=== PATIENT | male | born 1945 | race Caucasian/White ===

== ENCOUNTER 2017-06-04 05:22 | Inpatient (IN) | payer MEDICARE, OTHER ==
[2017-06-04] VITALS (18 sets, daily range): BP systolic 143–171; BP diastolic 67–92; PULSE 56–68; RESP 13–34; Ht 172.7 cm; Wt 78.0 kg
[~2017-06-04] VITALS: Ht 172.7 cm; Wt 78.0 kg
[2017-06-04] MEDS ORDERED: LOSA1TAB20 PO (06:55)
[2017-06-04] MEDS ORDERED: SIMV40TA7 PO (06:55)
[2017-06-04] MEDS ORDERED: ONDA-43 IV* (06:55)
[2017-06-04] MEDS ORDERED: RES15 PO (06:55)
[2017-06-04] MEDS ORDERED: FINA5TAB4 PO (06:55)
[2017-06-04] MEDS ORDERED: MORP2DIS2 IV (06:55)
[2017-06-04] MEDS ORDERED: ASPI-781 PO (06:55)
[2017-06-04] MEDS ORDERED: MAGN400O4 PO (06:55)
[2017-06-04] MEDS ORDERED: ACET-2047 PO (06:55)
[2017-06-04] MEDS ORDERED: ALPR0.5T10 PO (06:55)
[2017-06-04] MEDS ORDERED: PANT40TA4 PO (06:55)
[2017-06-04] MEDS ORDERED: LIDOCAINE 1% (MDV) 20 ML INJ ONE (08:00)
[2017-06-04] MEDS ORDERED: HEPARIN 1000 UNITS/ML 10 ML INJ ONE (08:00)
[2017-06-04] MEDS ORDERED: IODIXANOL LOCM 100 ML BTL ONE (08:00)
[2017-06-04] MEDS ORDERED: MIDAZOLAM 1 MG/ML 2 ML INJ ONE (08:01)
[2017-06-04] MEDS ORDERED: FENTAnyl 50 MCG/ML VIAL ONE (08:01)
[2017-06-04] MEDS ORDERED: VERAPAMIL 5 MG INJ ONE (08:01)
[2017-06-04] MEDS ORDERED: NITROGLYCERIN (IC) 100 MCG/ML INJ ONE (08:01)
[2017-06-04] MEDS ORDERED: TICAGRELOR 90 MG TABLET ONE (09:33)
[2017-06-04] MEDS ORDERED: ASPIRIN 325 MG TAB ONE (09:33)
[2017-06-04] MEDS ORDERED: SOD CHLORIDE 0.9% 1,000 ML IV SCH (09:36)
--- NOTE | 2017-06-04 09:41 | OPR ---
Date/Time of Note Date/Time of Note DATE: 06/04/17 TIME: 09:40 Operative Report Preoperative Diagnosis Nstemi Postoperative Diagnosis Obstructive cad Operation/Procedure Performed 1.C 2.PTCA/stent x 1 to LCX Surgeon: JASON MAN Anesthesia Type: moderate sedation Estimated Blood Loss: minimal Specimen: none Grafts/Implants: none Complications: no JASON MAN Jun 04, 2017 09:41
[2017-06-04] MEDS ORDERED: DIAZEPAM 2 MG TAB PO PRN (10:00)
[2017-06-04] MEDS ORDERED: ACETAMINOPHEN 325 MG TAB PO PRN (10:00)
[2017-06-04] MEDS ORDERED: OXYCODONE/ACETAMINOPHEN (5/325) TAB PO PRN ×2 (10:00)
[2017-06-04] MEDS ORDERED: ONDANSETRON 4 MG INJ IV PRN (10:00)
[2017-06-04] MEDS ORDERED: ZOLPIDEM 5 MG TAB PO PRN (10:00)
[2017-06-04] MEDS ORDERED: AL HYDROX/MG HYDROX/SIMETH 30 ML CUP PO PRN (10:00)
[2017-06-04] MEDS ORDERED: OXYCODONE/ACETAMINOPHEN (5/325) TAB ONE (10:09)
--- NOTE | 2017-06-04 13:04 | CARRPT ---
DATE OF PROCEDURE: 06/04/2017 REASON FOR LEFT HEART CATHETERIZATION: Tmj-[id number] myocardial infarction. TYPE OF PROCEDURE: 1. Left heart catheterization. 2. Coronary angiography. 3. Percutaneous transluminal coronary angioplasty with placement of Synergy drug-eluting stent x1, 3.5 x 24 mm to mid circumflex. 4. 60 minutes of conscious sedation. 5. Measurement of left ventricular end-diastolic pressure. ATTENDING PHYSICIAN: Dr. Alex Lorenzo. REFERRING PHYSICIAN: Dr. Edwards, cardiology service. INDICATION: Tdj-IS-[id number] myocardial infarction. TYPE OF ANESTHESIA: Conscious and local. BRIEF HISTORY AND HOSPITAL COURSE: Mr. Isaac is a 72-year-old male, with history of hypertension, dyslipidemia, prior PTCA and stent placement, who initially developed chest pain at an outside hospital and ruled in for a non-ST elevation myocardial infarction. Peak troponin greater than 4. Given these symptoms, patient was placed on medical therapy and has now been transferred to [facility] in order to undergo left heart catheterization to assess for the possibility of significant obstructive coronary artery disease leading to his symptoms of chest pain and subsequent [id number] myocardial infarction. PROCEDURE: After informed consent was obtained, patient was brought to [facility] where his right radial area was prepped and draped in usual sterile fashion. 2 percent lidocaine was infiltrated into the right radial area in order to achieve local anesthesia. Using modified Seldinger technique, the radial artery was cannulated and a 6- Pakistani arterial sheath was placed and a 6-Pakistani JL3.5 catheter was used to cath the left main coronary ostium. With contrast injection, multiple views of the left coronary artery system were obtained. JL3.5 was removed over a guidewire and a JR4 was used to cannulate the right coronary artery ostium. With contrast injection, multiple view of the right coronary artery system were obtained. The JR4 was removed over a guidewire and after a had been used to cross the aortic valve and have measurement of left ventricular end-diastolic pressure. At this time, given the findings of a significant obstructive lesion in the patient's circumflex vessel, we went directly into an interventional procedure. The patient received an additional 3000 units of heparin in order to achieve adequate parental ACT. A CLS3 guide was used to cath the left main coronary ostium and a 0.014 Bentson guidewire was passed in the distal circumflex lesion. The lesion was pre-dilated with a 2.5 x 12 mm balloon up to 18 atmospheres x2-3 each. The balloon was removed and the vessel stented with 3.5 x 24 mm drug-eluting stent deployed at 16 atmospheres, postdilated with a stent delivery system with 18 atmospheres. The stent system was removed and a 4.0 x 12 mm noncompliant quant was used to further post dilate up the length of the stent up to 16-18 atmospheres. The noncompliant balloon was removed and follow-up angiogram was obtained revealing excellent results. Following this stent, VANCE-3 flow throughout the vessel. No signs of complication including perforation or dissection. Subsequently, at this time, the interventional guide and guidewires were removed. The patient's sheath was removed. TR band was applied. There were no known complications. This completed the procedure. FINDINGS: Coronary angiography: Left main 4 mm, no significant stenosis. Circumflex proximally is a 3.5 mm vessel, has tandem 90 percent lesions. In the mid distal portion of the circumflex, there was a 30 percent to 40 percent lesion. There exists a ramus branch, 2 mm, with no significant focal stenosis. LAD proximally is a 3 mm vessel and in its proximal portion it has stenosis up to approximately 40 percent. The remainder of the LAD is free of significant focal stenosis. Just around the apex, there is a mid branching diagonal, 2.5 mm, with a 20 percent stenosis. The right coronary artery proximally is a 3.5 mm vessel and has a 50 percent lesion in its proximal portion and its mid distal portion has eccentric-appearing 60 percent to 70 percent lesion. The PDA comes of the right coronary artery. It is a 2 mm vessel with no significant focal stenosis. Posterolateral branch is a 2.5 mm vessel with no significant focal stenosis. Measurement of left ventricular end-diastolic pressure, 11-12. PTCA AND STENT PLACEMENT: Prior to PTCA and stent placement, the patient had a tandem 90 percent circumflex lesion. Status post PTCA and stent placement, patient had no residual stenosis, VANCE- 3 flow throughout the vessel and no sign of complication including perforation or dissection. TOTAL FLUOROSCOPY TIME: 9 minutes. TOTAL CONTRAST: 130 cc. IMPRESSION: 1. Obstructive coronary disease involving tandem circumflex lesion, status post successful percutaneous transluminal coronary angioplasty and stent placement, drug-eluting stent x1., 3.5 x 24 mm. 2. Intermediate stenosis in the mid distal right coronary artery of unclear significance. 3. Normal left heart filling pressures. 4. No significant aortic stenosis by gradient. RECOMMENDATIONS: In light of significant findings at this time: 1. Place patient on Brilinta 90 mg 1 tab p.o. b.i.d., and aspirin 81 mg 1 tab b.i.d. for at least 1 year. 2. Maximal medical management. 3. Aggressive risk factor stratification. 4. Patient admitted to ICU for post-op management Dictated By: Katina Chou /sara/rachele /Document#: [id number] ; Dr. Grace CORNEJO
--- NOTE | 2017-06-04 17:47 | CONS ---
Date/Time of Note Date/Time of Note DATE: 06/04/17 TIME: 17:39 Assessment/Plan Assessment/Plan Chief Complaint/Hosp Course Assessment: NSTEMI - 90% tandem stenoses in left circumflex artery, status post drug- eluting stent x 1 Coronary artery disease - prior coronary stenting (1994), currently intermediate 60-70% stenosis in right coronary artery and nonobstructive disease elsewhere Hypertension Dyslipidemia Benign prostate hyperplasia Recommendations: -continue aspirin 81mg daily indefinitely -continue ticagrelor 90mg BID for at least one year -continue atorvastatin 40mg daily -echocardiogram (at [facility]) showed LVEF 50-55% with distal anteroseptal hypokinesis -follow up labs and EKG tomorrow, anticipate discharge tomorrow if remains stable Problems: Consultation Date/Type/Reason Admit Date/Time Jun 04, 2017 at 09:39 Initial Consult Date Type of Consultation: Cardiology 24 HR Interval Summary Free Text/Dictation Coronary angiography today showed tandem 90% stenoses in the left circumflex artery, status post drug-eluting stent x 1. Intermediate 60-70% stenosis in right coronary artery. Nonobstructive disease elsewhere. Patient doing well post-procedure. Right radial artery access site intact. No chest pain or shortness of breath. Detailed Summary Additional Comments 14 point review of systems without changes. Exam/Review of Systems Vital Signs Vitals Vital Signs Date Time Temp Pulse Resp B/P Pulse Ox O2 Delivery O2 Flow Rate FiO2 06/04/17 10:58 Nasal Cannula 2.0 06/04/17 10:29 58 22 171/81 100 06/04/17 09:54 98.0 Exam Constitutional: alert, well developed Psych: nl mood/affect, no complaints Head: atraumatic, normocephalic Eyes: nl conjunctiva, nl lids ENMT: nl external ears & nose, nl nasal mucosa & septum Neck: non-tender, supple, No jvd Respiratory: clear to auscultation, normal air movement Cardiovascular: regular rate and rhythm Gastrointestinal: non-tender, soft Musculoskeletal: nl extremities to inspection Extremities: No clubbing, No cyanosis, No edema Neurological: nl mental status, nl speech Skin: nl turgor Medications Medications Current Medications Aspirin (Halfprin) 81 mg DAILY PO ; Start 06/05/17 at 09:00 Ticagrelor (Brilinta) 90 mg BID PO ; Start 06/04/17 at 21:00 Atorvastatin Calcium (Lipitor) 40 mg DAILY@21 PO ; Start 06/04/17 at 21:00 Acetaminophen (Tylenol Tab) 650 mg Q4H PRN PO NON-CARDIAC PAIN LEVEL 1-3; Start 06/04/17 at 10:00 Oxycodone/ Acetaminophen (Percocet (5/ 325)) 1 tab Q4H PRN PO REPORTED NON- CARDIAC PAIN 4-7 Last administered on 06/04/17 10:42; Admin Dose 1 TAB; Start at 10:00 Oxycodone/ Acetaminophen (Percocet (5/ 325)) 2 tab Q4H PRN PO REPORTED NON- CARDIAC PAIN 4-7; Start 06/04/17 at 10:00 Diazepam (Valium) 2 mg Q6H PRN PO RESTLESSNESS Last administered on 06/04/17 12 :18; Admin Dose 2 MG; Start 06/04/17 at 10:00 Al Hydrox/Mg Hydrox/Simethicone (Mag-Al Plus) 30 ml Q4H PRN PO GASTROINTESTINAL UPSET; Start 06/04/17 at 10:00 Ondansetron HCl 4 mg 4 mg Q4H PRN IV NAUSEA AND/OR VOMITING; Start 06/04/17 at 10:00 Sodium Chloride (NS) 1,000 ml @ 75 mls/hr [id number] IV Last administered on 10:32; Admin Dose 75 MLS/HR; Start 06/04/17 at 09:36; Stop 06/04/17 at 22:55 KELSEY DONAHUE MD Jun 04, 2017 17:46
[2017-06-04] MEDS: TICAGRELOR 90 MG TABLET PO SCH (20:07)
[2017-06-04] MEDS ORDERED: ATORVASTATIN 40 MG TAB PO SCH (21:00)
[2017-06-05] VITALS (7 sets, daily range): BP systolic 129–140; BP diastolic 61–79; PULSE 59–89; RESP 18–19
[2017-06-05 07:39] LABS: BASOPHILS % 0.2 % (0.0-2.0); EOSINOPHILS % 0.5 % (0.0-7.0); HEMATOCRIT 40.9 % (42.0-52.0); HEMOGLOBIN 14.3 g/dl (14.0-18.0); LYMPHOCYTES # 2.4 10^3/ul (0.8-2.9); LYMPHOCYTES % 41.5 % (15.0-51.0); MEAN CORPUSCULAR HEMOGLOBIN 29.6 pg (29.0-33.0); MEAN CORPUSCULAR VOLUME 84.7 fl (82.0-101.0); MEAN PLATELET VOLUME 12.3 fl (7.4-10.4); MONOCYTE # 0.8 10^3/ul (0.3-0.9); MONOCYTES % 13.3 % (0.0-11.0); NEUTROPHIL # 2.6 10^3/ul (1.6-7.5); NEUTROPHILS % 44.2 % (39.0-77.0); PLATELET COUNT 132 10^3/UL (140-415); RED BLOOD COUNT 4.83 10^6/ul (4.70-6.10); WHITE BLOOD COUNT 5.9 10^3/ul (4.8-10.8)
[2017-06-05 08:14] LABS: CREATININE 0.96 mg/dl (0.61-1.24); POTASSIUM 4.1 mmol/L (3.5-5.1)
--- NOTE | 2017-06-05 08:23 | RADRPT ---
Vent Rate: 56 bpm RR Interval: 0 msec MI Interval: 158 msec QRS Duration: 74 msec QT Interval: 462 msec QTC Interval: 445 msec P-R-T Pingree: 26 - 6 - 44 degrees Sinus bradycardia Low voltage QRS Septal infarct , age undetermined Abnormal ECG Electronically Signed By: Masha Yuan [id number]
[2017-06-05] MEDS ORDERED: FINASTERIDE 5 MG TAB PO SCH (09:00)
[2017-06-05] MEDS ORDERED: ASPIRIN (EC) 81 MG TAB PO SCH (09:00)
[2017-06-05] MEDS: TICAGRELOR 90 MG TABLET PO SCH (09:50)
--- NOTE | 2017-06-05 12:13 | DS ---
Date/Time of Note Date/Time of Note DATE: 06/05/17 TIME: 12:02 Discharge Summary Admission/Discharge Info Admit Date/Time Jun 04, 2017 at 09:39 Discharge Date/Time 06/05/2017 Discharge Diagnosis Non-ST elevation myocardial infarction. Patient Condition: Good Procedures Left heart catheterization Coronary angiography Percutaneous transluminal coronary angioplasty with placement of Synergy drug- eluting stent x1, 3.5 x 24 mm to mid circumflex artery Hx of Present Illness The patient is a 72 year-old male with coronary artery disease and prior coronary stenting, hypertension, dyslipidemia, and benign prostate hyperplasia. He presented to [facility] 05/31/2017 with dizziness, nausea, and vomiting. He was found to have a non ST-elevation myocardial infarction with a peak troponin of 4. A transthoracic echocardiogram showed left ventricular ejection fraction of 50-55% with distal anteroseptal hypokinesis. Hospital Course He was transferred to [facility] 06/04/2017 for cardiac catheterization. He was found to have tandem 90% stenoses in the left circumflex artery, and underwent implantation of one drug-eluting stent to the circumflex artery. He was also noted to have an intermediate 60-70% stenosis in the right coronary artery (not intervened upon) and nonobstructive disease elsewhere. He was monitored overnight without acute events. His right radial access site was intact without apparent complications. Patient discharged on aspirin 81mg daily (to be continued indefinitely and Brilinta 90mg BID (to be continued for at least one year). Home Meds Reported Medications Morphine (Morphine) 2 Mg/1 Ml Disp.syrin, 2 MG IV Q4H Y for SEVERE PAIN LEVEL 7- 10, EA 06/04/17 Magnesium Hydroxide* (Milk Of Magnesia*) 400 Mg/5 Ml Oral.susp, 30 ML PO DAILY Y for CONSTIPATION, ML 06/04/17 Temazepam (Restoril) 15 Mg Cap, 15 MG PO QHS Y for INSOMNIA, CAP 06/04/17 Simvastatin (Simvastatin) 40 Mg Tablet, 40 MG PO QHS, #30 TAB 06/04/17 Pantoprazole (Protonix) 40 Mg Tabec, 40 MG PO DAILY, TAB 06/04/17 Ondansetron Hcl* (Zofran*) 4 Mg Tab, 4 MG IV* Q6H Y for NAUSEA AND OR VOMITING, TAB 06/04/17 Aspirin* (Ecotrin*) 325 Mg Tablet.dr, 325 MG PO DAILY, TAB 06/04/17 Acetaminophen* (Acetaminophen*) 650 Mg Tablet, 650 MG PO Q6H Y for MILD PAIN LEVEL 1-3, #30 TAB 06/04/17 Alprazolam (Alprazolam) 0.5 Mg Tab.rapdis, 0.5 MG PO Y for ANXIETY, TAB 06/04/17 Finasteride* (Finasteride*) 5 Mg Tablet, 5 MG PO DAILY, TAB 06/04/17 Losartan-Hydrochlorothiazide (Losartan-HCTZ) 100-25 Mg Tab, 1 TAB PO DAILY, TAB 06/04/17 Follow-up Plan Follow up with Kelsey Donahue MD in 1-2 weeks. Patient provided with contact information to schedule appointment. Primary Care Provider Not On Staff Doctor Pending Labs Laboratory Tests Test 06/05/17 06:48 White Blood Count 5.910^3/ul (4.8-10.8) Red Blood Count 4.8310^6/ul (4.70-6.10) Hemoglobin 14.3g/dl (14.0-18.0) Hematocrit 40.9% (42.0-52.0) Mean Corpuscular Volume 84.7fl (82.0-101.0) Mean Corpuscular Hemoglobin 29.6pg (29.0-33.0) Mean Corpuscular Hemoglobin Concent 35.0g/dl (32.0-37.0) Red Cell Distribution Width 13.0% (11.5-14.5) Platelet Count 23171^3/UL (140-415) Mean Platelet Volume 12.3fl (7.4-10.4) Neutrophils % 44.2% (39.0-77.0) Lymphocytes % 41.5% (15.0-51.0) Monocytes % 13.3% (0.0-11.0) Eosinophils % 0.5% (0.0-7.0) Basophils % 0.2% (0.0-2.0) Nucleated Red Blood Cells % 0.0/100WBC (0.0-0.0) Neutrophils # 2.610^3/ul (1.6-7.5) Lymphocytes # 2.410^3/ul (0.8-2.9) Monocytes # 0.810^3/ul (0.3-0.9) Eosinophils # 0.010^3/ul (0.0-0.5) Basophils # 0.010^3/ul (0.0-0.1) Nucleated Red Blood Cells # 0.010^3/ul (0.0-0.0) Sodium Level 145mmol/L (135-144) Potassium Level 4.1mmol/L (3.5-5.1) Chloride Level 109mmol/L (97-110) Carbon Dioxide Level 25mmol/L (21-31) Anion Gap 15 (8-16) Blood Urea Nitrogen 12mg/dl (7-20) Creatinine 0.96mg/dl (0.61-1.24) Glucose Level 99mg/dl (70-220) Calcium Level 9.0mg/dl (8.4-10.2) KELSEY DONAHUE MD Jun 05, 2017 12:13
--- NOTE | 2017-06-07 11:17 | RADRPT ---
Vent Rate: 76 bpm RR Interval: 0 msec NC Interval: 138 msec QRS Duration: 76 msec QT Interval: 432 msec QTC Interval: 486 msec P-R-T Bonneau: 64 - -8 - 69 degrees Normal sinus rhythm with sinus arrhythmia Septal infarct , age undetermined Abnormal ECG Electronically Signed By: Darron Cole [id number]
== END 2017-06-05 12:35 | disposition home or self-care (01) | DRG 247 ==
LOC: CCL 05:22 → REC 09:39 → TEL 18:30
PROVIDERS: ADMIT Internal Medicine; ATTEND Internal Medicine
PROC: B211YZZ Fluoroscopy of Multiple Coronary Arteries using Other Contrast (ICD-10-PCS; 2017-06-04)
PROC: 3E033PZ Introduction of Platelet Inhibitor into Peripheral Vein, Percutaneous Approach (ICD-10-PCS; 2017-06-04)
PROC: 027034Z Dilation of Coronary Artery, One Artery with Drug-eluting Intraluminal Device, Percutaneous Approach (ICD-10-PCS; principal; 2017-06-04 08:00)
PROC: 4A023N7 Measurement of Cardiac Sampling and Pressure, Left Heart, Percutaneous Approach (ICD-10-PCS; 2017-06-04 08:00)
DX: I21.4 Non-ST elevation (NSTEMI) myocardial infarction (principal); I10 Essential (primary) hypertension; I25.119 Atherosclerotic heart disease of native coronary artery with unspecified angina pectoris; F17.210 Nicotine dependence, cigarettes, uncomplicated; E78.5 Hyperlipidemia, unspecified; N40.0 Benign prostatic hyperplasia without lower urinary tract symptoms; Z79.02 Long term (current) use of antithrombotics/antiplatelets; Z79.82 Long term (current) use of aspirin
CPT/HCPCS: 80048; 85025; 93005; 93458; C1725; C1769; C1874; C1887; C9600; J1644; J2250; J3010; Q9967